=== PATIENT | female | born 1960 | race Caucasian/White ===

== ENCOUNTER 2020-03-23 04:33 | Emergency (ER) | payer BC ==
[~2020-03-23] VITALS: Ht 157.5 cm; Wt 52.7 kg
[2020-03-23 05:23] LABS: HEMATOCRIT 45.7 % (37.0-47.0); HEMOGLOBIN 14.6 g/dl (12.0-16.0); IMMATURE GRANULOCYTES 0.6 % (0.0-5.0); MEAN CORPUSCULAR HGB CONC 31.9 g/dL CAL (32.0-36.0); NEUT# 8.98 thou/uL (2.00-7.15); RED BLOOD COUNT 4.71 mill/uL (4.20-5.60); RED CELL DISTRI WIDTH 12.3 % (11.5-15.5)
[2020-03-23 05:33] LABS: ALBUMIN 4.4 g/dL (3.2-5.0); ALKALINE PHOSPHATASE 57 u/l (38-126); ANION GAP 13 (6-22 (CALC)); BILIRUBIN, TOTAL 0.7 mg/dL (0.0-1.4); BUN 8 mg/dL (7-17); BUN/CREATININE RATIO 10 (12-20 (CALC)); CARBON DIOXIDE 22 mmol/l (22-30); CHLORIDE 106 mmol/l (95-108); CREATININE 0.8 mg/dL (0.5-1.0); GFR > 60 ML/MIN (>=60 (CALC)); GFR FOR AFR.AMER. > 60 ML/MIN (>=60 (CALC)); POTASSIUM 4.2 mmol/l (3.5-5.1); SGOT/AST 17 u/l (14-36); SODIUM 138 mmol/l (137-146); TOTAL PROTEIN 7.2 g/dL (6.3-8.2)
[2020-03-23] MEDS ORDERED: BACTRIM DS1 TAB PO (05:35)
[2020-03-23] MEDS ORDERED: KEFLEX500 M1 PO (05:35)
[2020-03-23] MEDS ORDERED: HYDROCO/APAP1 TA9 PO (05:36)
[2020-03-23 05:55] VITALS: BP 130/70
== END 2020-03-23 05:55 | disposition home or self-care (01) | DRG 603 ==
LOC: ED 04:33
PROC: 0X950ZZ Drainage of Left Axilla, Open Approach (ICD-10-PCS; principal; 2020-03-23)
DX: L02.412 Cutaneous abscess of left axilla (principal); L03.112 Cellulitis of left axilla